=== PATIENT | female | born 1990 | race African-American/Black ===

== ENCOUNTER 2018-04-07 15:36 | Inpatient (IN) ==
[~2018-04-07 15:36] MED LIST: LACTATED RINGERS 1,000 ML IV ONE
[2018-04-07] MEDS ORDERED: ONDANSETRON 4 MG/2 ML VIAL IV PRN ×2 (15:53→22:37)
[2018-04-07] MEDS ORDERED: OXYTOCIN/LR 20 UNIT/1,000 ML BAG IV SCH (16:00)
[2018-04-07 16:12] LABS: Basophils % 0.2 % (0.0-0.8); Eosinophils # 0.2 10*3/uL (0.0-0.87); Eosinophils % 2.1 % (0.00-10.9); Hematocrit 32.1 VOL% (35.7-47.0); Hemoglobin 10.1 GM/DL (12.0-16.0); Immature Granulocytes % 0.7 %; Immature Granulocytes Absolute 0.07 #; Lymphocytes # 1.5 10*3/uL (1.4-4.0); Lymphocytes % 15.5 % (21.3-54.2); Mean Corpuscular HGB Conc 31.5 GM/DL (32-36); Mean Corpuscular Hemoglobin 28 PG (27-34); Mean Corpuscular Volume 89.9 FL (87-102); Mean Platelet Volume 10.7 FL (9.6-12.0); Monocytes # 0.7 10*3/uL (0.11-0.8); Monocytes % 6.8 % (1.7-12.7); Neutrophils # 7.3 10*3/uL (1.4-7.4); Neutrophils % 74.7 % (38.7-73.9); Platelet Count 294 T/CUMM (130-400); Red Blood Count 3.57 MC/CUMM (3.8-5.5); Red Cell Distribution Width 12.8 % (9.3-17.3); White Blood Count 9.8 T/CUMM (4-12)
[2018-04-07 16:24] LABS: INR 0.9; PT Patient Result 9.4 SECS; Partial Thromboplastin Time 23.5 SECS (0-40)
[2018-04-07 16:33] LABS: Albumin 2.7 G/DL (3.4-5.0); Bilirubin,Total 0.5 MG/DL (0.2-1.0); Calcium 8.6 MG/DL (8.5-10.1); Osmolality,Calculated 273.5 MOS/KG (273-304); Potassium 3.9 MMOL/L (3.5-5.1); Total Protein 6.9 G/DL (6.4-8.3); Uric Acid 3.8 MG/DL (2.6-6.0)
[2018-04-07] MEDS ORDERED: PROMETHAZINE 25 MG/1 ML VIAL IM ONE (16:47)
[2018-04-07] MEDS ORDERED: ePHEDrine 50 MG/ML AMP IV PRN (16:47)
[2018-04-07] MEDS ORDERED: diphenhydrAMINE 50 MG/1 ML VIAL IV PRN ×2 (16:47)
[2018-04-07] MEDS ORDERED: hydrOXYzine HCL 25 MG/1 ML VIAL IM PRN (16:47)
[2018-04-07] MEDS ORDERED: NALOXONE 0.4 MG/ML VIAL IV PRN (16:47)
[2018-04-07] MEDS ORDERED: CITRIC ACID/SODIUM CITRATE 30 ML UDCUP PO ONE (16:52)
[2018-04-07] MEDS ORDERED: FAMOTIDINE 20 MG/2 ML VIAL IV ONE (16:52)
[2018-04-07] MEDS ORDERED: fentaNYL 2 MCG/ROPIV 0.2% EPID 100 ML EPIDURAL SCH (17:00)
[2018-04-07] MEDS: LACTATED RINGERS 1,000 ML IV SCH (17:01)
[2018-04-07] MEDS: LABETALOL 200 MG TABLET PO SCH (20:00)
[2018-04-07] MEDS ORDERED: miSOPROStol 200 MCG TABLET ONE (22:13)
[2018-04-07] MEDS ORDERED: LIDOCAINE 1% 50 ML VIAL ONE (22:13)
[2018-04-07] MEDS ORDERED: METHYLERGONOVINE 0.2 MG/1 ML AMP ONE (22:14)
[2018-04-07] MEDS ORDERED: BISACODYL 10 MG SUPP RECTAL PRN (22:37)
[2018-04-07] MEDS ORDERED: MEASLES/MUMPS/RUBELLA VACCINE 0.5 ML VIAL SUBCUT ONE (22:37)
[2018-04-07] MEDS ORDERED: BENZOCAINE 20%/MENTHOL 0.5% SPRAY 56 GM CAN TOP PRN (22:37)
[2018-04-07] MEDS ORDERED: DIPH/TET/ACEL PERT BOOSTER VACCINE 0.5 ML VIAL IM ONE (22:37)
[2018-04-07] MEDS ORDERED: oxyCODONE/ACETAMINOPHEN 5-325 MG TABLET PO PRN (22:37)
[2018-04-07] MEDS ORDERED: OXYTOCIN/LR 20 UNIT/1,000 ML BAG IV ONE (22:37)
[2018-04-07] MEDS ORDERED: HYDROCORTISONE 2.5% RECTAL CREAM 30 GM TUBE TOP PRN (22:37)
[2018-04-07] MEDS ORDERED: IBUPROFEN 800 MG TABLET PO PRN (22:37)
[2018-04-07] MEDS ORDERED: WITCH HAZEL PADS 100/JAR TOP PRN (22:37)
[2018-04-07] MEDS ORDERED: LANOLIN 50% CREAM 0.3 OZ TUBE TOP PRN (22:37)
[2018-04-07] MEDS ORDERED: RHO(D) IMMUNE GLOBULIN 300 MCG SYRINGE IM ONE (22:37)
[2018-04-07] MEDS ORDERED: ACETAMINOPHEN 325 MG TABLET PO PRN (22:37)
[2018-04-08] MEDS: oxyCODONE/ACETAMINOPHEN 5-325 MG TABLET PO PRN ×2 (02:54→20:40)
[2018-04-08] MEDS: LACTATED RINGERS 1,000 ML IV SCH (03:32)
[2018-04-08 06:18] LABS: Basophils % 0.2 % (0.0-0.8); Eosinophils # 0.1 10*3/uL (0.0-0.87); Eosinophils % 0.8 % (0.00-10.9); Hematocrit 30.4 VOL% (35.7-47.0); Hemoglobin 9.6 GM/DL (12.0-16.0); Immature Granulocytes % 0.7 %; Lymphocytes # 1.4 10*3/uL (1.4-4.0); Mean Corpuscular HGB Conc 31.6 GM/DL (32-36); Mean Corpuscular Hemoglobin 28 PG (27-34); Mean Corpuscular Volume 88.9 FL (87-102); Mean Platelet Volume 10.6 FL (9.6-12.0); Monocytes # 0.7 10*3/uL (0.11-0.8); Monocytes % 4.9 % (1.7-12.7); Neutrophils # 12.8 10*3/uL (1.4-7.4); Neutrophils % 84.4 % (38.7-73.9); Platelet Count 242 T/CUMM (130-400); Red Blood Count 3.42 MC/CUMM (3.8-5.5); Red Cell Distribution Width 12.8 % (9.3-17.3); White Blood Count 15.1 T/CUMM (4-12)
[2018-04-08] MEDS: LABETALOL 200 MG TABLET PO SCH ×2 (09:55→20:36)
[2018-04-08] MEDS: DOCUSATE SODIUM 100 MG CAPSULE PO SCH ×2 (09:58→20:35)
[2018-04-09 07:15] VITALS: BP 122/66
[2018-04-09] MEDS: LABETALOL 200 MG TABLET PO SCH (08:53)
[2018-04-09] MEDS: DOCUSATE SODIUM 100 MG CAPSULE PO SCH (08:53)
== END 2018-04-09 15:05 | disposition home or self-care (01) | DRG 807 ==
LOC: N.LDOUT 15:36 → N.LD 15:38 → N.OB 04-08 01:58
PROVIDERS: ADMIT Specialist; ATTEND Specialist